=== PATIENT | female | born 1970 | race Caucasian/White ===

== ENCOUNTER 2024-11-20 14:06 | Outpatient (AMB) | payer MEDICARE, SELFPAY ==
--- NOTE | 2024-11-20 14:28 | MHC.OFFVIS ---
Vital Signs 11/20/24 14:31 Height 5 ft 10 in Weight 213 lb BMI 30.6 BP 124/78 Blood Pressure Location Rt brachial Position Sitting Intake Visit Reasons: ENP-Hydrocephalus Intake Note: Patient referred for hydrocephalus and cerebral injury. patient saw Delores. Allergies cyclobenzaprine [From Flexeril] Allergy (Severe, Verified 11/20/24 14:30) Throat Swelling topiramate [From Topamax] Allergy (Unknown, Verified 11/20/24 14:30) Unknown Medication List - Last Reconciled 11/20/24 by Donna Arellano MD acetazolamide 250 mg PO BID albuterol sulfate 90 mcg/actuation inhalation aspirin 81 mg PO DAILY atorvastatin 20 mg PO DAILY bupropion HCl XL 300 mg PO DAILY diazepam 2 mg PO BEDTIME PRN diclofenac sodium 75 mg PO BID diclofenac sodium 1% topical duloxetine 60 mg PO DAILY duloxetine 30 mg PO DAILY fluticasone furoate-vilanterol 200-25 mcg/dose (Breo Ellipta) 1 ea inhalation DAILY fluticasone propionate 50 mcg/actuation sprays intranasal levocetirizine 5 mg PO DAILY multivitamin (One Daily Multivitamin tablet) 1 tab PO DAILY omeprazole 40 mg PO DAILY HPI Comments Details: 54y/o female with 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 she had a surgery in 1990 - arachnoid cyst . In 1992 arachnoid cyst recurred so she had a shunt placed.( V P shunt). in 2007 she had gastric bypass and 1/2 of her shunt was found. she has residual dysarthria, ataxia and has been clinically followed up since then she has compensated for her deficits. . Her right side side is worse . she has frequent falls - uses a cane . she has [employer] 24 hrs which is helping. she also has nocturnal enuresis for past 6 years. she snores and has daytime fatigue.she was diagnosed with sleep apnea , was on CPAP. 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 Hypersomnia Snoring Enuresis Cerebellar ataxia Xanthelasma of right eyelid Use of cane as ambulatory aid Unsteady gait Tear of meniscus of right knee Synovial cyst of popliteal space [[place]lea], right knee Sleep apnea Seasonal allergies RBBB (right bundle branch block) Pain in throat Osteoarthritis of knee NURA on CPAP Odynophagia Obstructed [employer] shunt Obesity, class 1 Nodule of right lung Nocturia Major depression, recurrent, chronic Incontinence Hyperlipidemia Hypercholesteremia Hydrocephalus, acquired GERD without esophagitis GRETA (generalized anxiety disorder) Dysphagia Dyslipidemia Diverticulosis Bundle branch block Ataxia of both legs Asthma Anxiety and depression Allergic rhinitis Surgical History H/O rotator cuff surgery H/O endoscopy History of cholecystectomy H/O gastric sleeve Family History Mother CAD (coronary artery disease) Diabetes mellitus Father Depression Diabetes mellitus Brother Suicide Social History Alcohol intake: current Patient Tobacco Use Status: Former Tobacco user Substance Use Type: Marijuana Physical Exam Vital Signs: Last Vital Signs BP 124/78 11/20/24 14:31 BMI result Body Mass Index 30.6 Const General: cooperative, healthy appearing and comfortable Nutritional Appearance: average body habitus Orientation/consciousness: patient oriented x3 Neuro Other: Dysarthria FN percy dysmetria Gait ataxia - with cane wide based General: patient oriented x3, tone normal and moves all extremities Cranial nerves: Yes Facial sensation intact/muscles of mastication intact, Yes Bilaterally intact EOM present, Yes Nystagmus not present, Yes Normal facial strength present and Yes Midline tongue present Cognition (Neuro): normal cognition Gait exam (Neuro): Ataxic gait present Motor exam (neuro): 5/5 motor strength present throughout Deep tendon reflexes (DTR's): Right triceps reflex intensity grade: 1+, Left triceps reflex intensity grade: 1+, Rt Biceps (C5, C6): 1+, Left biceps reflex intensity grade: 1+, Right brachioradialis reflex intensity grade: 1+, Left brachioradialis reflex intensity grade: 1+, Right patellar reflex intensity grade: 1+ and Left patellar reflex intensity grade: 1+ Coordination: [id number] test normal (dysmetria percy) Psych Appearance: grossly normal Assessment & Plan Assessment & Plan (1) 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: Code(s): G91.9 - Hydrocephalus, unspecified Category: Medical (2) Cerebellar ataxia: Comment: dysrthria, dysmetria, ataxia Code(s): G11.9 - Hereditary ataxia, unspecified Category: Medical (3) Enuresis: Code(s): R32 - Unspecified urinary incontinence Category: Medical (4) Snoring: Code(s): R06.83 - Snoring Category: Medical (5) Hypersomnia: Code(s): G47.10 - Hypersomnia, unspecified Category: Medical Plan MRI brain to monitor hydrocephalus Home sleep test to r/o sleep apnea/ continue acetazolamide 250mg bid Coding Level of Care Code New Pt Level 4 (08808) Complex EM visit Add On G2211 Diagnoses 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
[2024-11-20 14:31] VITALS: BP 124/78; BMI 30.6
--- OUTSIDE RECORDS SUMMARY | 2024-11-20 16:04 | XMS_ITS | Patient Health Record ---
Author Organization [facility] Address [address] [place] [address] Care Team Providers Care Flat Optical Element Maker Name Role Phone Katie Dooley Unavailable [phone] Reason For Referral No Information Medications Medication SIG (Take, Route, Frequency, Duration) Notes Start Date End Date Status Omeprazole 20 MG Orally Act abi buPROPion HCl ER (XL) 300 MG Orally Active DULoxetine HCl 30 MG Orally Active acetaZOLAMIDE 250 MG Orally Active Social History Tobacco Use: Social History Observation Description Date Details (start date - stop date) Never Smoker NA - NA Tobacco Use/Smoking Question Answer Notes Are you a nonsmoker Alcohol Screen (Audit-C) Question Answer Notes Did you have a drink containing alcohol in the p ast year? No Points 0 Problems Problem Type SNOMED Code ICD Code Onset Dates Problem Status W/U Status Risk Notes Problem Asthma, unspecified, unspecified status (493.90) Active confirmed Problem Major depression, single episode (17748586) Major depressive disorder, single episode, unspecified (F32.9) Active confirmed Problem Anxiety disorder (774038125) Anxiety disorder, unspecified (F41.9) Active confirmed Problem Hydrocephalus (234532423) Hydrocephalus, unspecified (G91.9) Active confirmed Problem Gastro-esophageal reflux disease with esophagitis (939498286) Gastro-esophage al reflux disease with esophagitis (K21.0) Active confirmed Problem Headache (63406921) Headache (R51) Active confirmed Plan Of Treatment Pending Test Test Name Order Date Ultrasound : Pelvic 09/02/2016 CHLAMYDIA GC AMP PROBE 09/02/2016 THIN PREP,HPV,SRIDEVI IF HPV+ (>29YR)(SCRN) 09/22/2016 Insurance Providers Payer Name Payer Address Payer Phone Subscriber Number Group Number Insured Name Patient Relationship to Insured Coverage Start Date Coverage End Date MEDICARE [address] NANCIE SHELLEY [id number] [phone] [id number] Self - patient is the insured Medical (General) History Medical History History ICD Code Gastro-esophageal reflux disease with es ophagitis K21.0 Unspecified asthma, uncomplicated J45.90 9 Major depressive disorder, single episod e, unspecified F32.9 gastric ulcer Headaches a/w hydrocephalus Anxiety disorder, unspecified Hydrocephalus, unspecified osteoarthritis knees and back Surgical History Surgery Date(Month/Year) [facility]UNT GASTRIC BYPASS 2008
== END 2024-11-20 15:25 | disposition home or self-care (01) ==
PROVIDERS: PCP Nurse Practitioner Family; Visit Provider Psychiatry & Neurology Neurology
DX: G91.9 Hydrocephalus, unspecified (principal); G11.9 Hereditary ataxia, unspecified; R32 Unspecified urinary incontinence; R06.83 Snoring; G47.10 Hypersomnia, unspecified
CPT/HCPCS: 99204; G2211

== ENCOUNTER → 2024-11-20 14:06 | Outpatient (BNVA) | payer MEDICARE, SELFPAY | PROVIDERS: PCP Nurse Practitioner Family; Visit Provider Psychiatry & Neurology Neurology | DX: G91.9 Hydrocephalus, unspecified (principal); G11.9 Hereditary ataxia, unspecified; R06.83 Snoring; G47.10 Hypersomnia, unspecified; R32 Unspecified urinary incontinence | CPT/HCPCS: 99202 ==